=== PATIENT | female | born 1940 | race Caucasian/White ===

== ENCOUNTER 2016-06-28 13:03 | Inpatient (IN) | payer OTHER, BC ==
[~2016-06-28] VITALS: Ht 165.1 cm; Wt 90.2 kg
[2016-06-28] VITALS (11 sets, daily range): BP systolic 143–201; BP diastolic 65–102
[2016-06-28 14:09] LABS: EOSINOPHIL (%) 0.8 % (0-5); EOSINOPHIL COUNT 0.1 K/uL (0-0.3); IMMATURE GRANULOCYTE (%) 0.3 % (0.0-0.7); IMMATURE GRANULOCYTE COUNT 0.4 K/uL; LYMPHOCYTE COUNT 2.2 K/uL (1.0-2.8); MCH 30.7 PG (29.0-34.0); MCHC 34.1 G/DL (30.0-36.0); MEAN PLAT.VOLUME 11.6 uM^3 (9.5-12.4); MONOCYTE COUNT 1.4 K/uL (0-0.8); NEUTROPHIL (%) 73.6 % (45-76); NEUTROPHIL COUNT 10.6 K/uL (1.8-6.4); PLATELET COUNT 235 K/uL (156-360); RBC DIS.WIDTH-CV 12.9 % (11.8-14.6); RBC DIS.WIDTH-SD 41.9 % (39-53); RED BLOOD COUNT 5.11 M/uL (3.80-5.20); WHITE BLOOD COUNT 14.4 K/uL (4.1-10.2)
[2016-06-28 14:19] LABS: PROTHROMBIN TIME 10.6 (9.2-11.2); PTT 23.1 (25-32)
[2016-06-28 14:24] LABS: CHLORIDE 99 mEq/L (99-109); SODIUM 136 mEq/L (136-147)
[2016-06-28 14:25] LABS: GLUCOSE 158 mg/dL (70-99)
[2016-06-28 14:27] LABS: ANION GAP 14 MEQ/L (2-14)
[2016-06-28 14:29] LABS: GFR ESTIMATE (CALCULATED) > 59 mL/min/
[2016-06-28 14:30] LABS: UREA NITROGEN (BUN) 20 mg/dL (9-23)
[2016-06-28 14:32] LABS: TROP-I INTERPRETATION NEGATIVE; TROPONIN-I < 0.01 ng/mL (0.0-0.30)
[2016-06-28] MEDS ORDERED: PREDNISONE10 MG PO (14:50)
[2016-06-28] MEDS ORDERED: SYNTHROID125 MCG PO (14:51)
[2016-06-28] MEDS ORDERED: TYLENOL EXTRA500 MG PO (14:53)
[2016-06-28] MEDS ORDERED: VITAMIN D31000 UNI2 PO (14:54)
[2016-06-28] MEDS ORDERED: ADVIL,NUPRIN,M200 MG PO (14:54)
[2016-06-28] MEDS ORDERED: FISH OIL 1,0001 EA10 PO (14:55)
[2016-06-28] MEDS ORDERED: PROBIOTIC1 EAC1 PO (14:55)
[2016-06-28] MEDS ORDERED: MAGNESIUM OXID200 MG PO (14:55)
[2016-06-28] MEDS ORDERED: MULTI VITAMIN1 EACH PO (14:56)
[2016-06-28] MEDS ORDERED: TURMERIC500 M1 PO (14:58)
[2016-06-28 21:13] LABS: TROP-I INTERPRETATION NEGATIVE; TROPONIN-I < 0.01 ng/mL (0.0-0.30)
[2016-06-29 04:50] VITALS: BP 153/74
[2016-06-29 06:16] LABS: HEMATOCRIT 44.6 % (36.0-46.0); MCH 29.6 PG (29.0-34.0); MCHC 32.1 G/DL (30.0-36.0); MCV 92.3 FL (83-99); MEAN PLAT.VOLUME 10.9 uM^3 (9.5-12.4); PLATELET COUNT 206 K/uL (156-360); RBC DIS.WIDTH-CV 13.2 % (11.8-14.6); RED BLOOD COUNT 4.83 M/uL (3.80-5.20)
[2016-06-29 07:46] VITALS: BP 144/72
[2016-06-29 11:53] VITALS: BP 162/80
[2016-06-29 16:18] VITALS: BP 150/74
[2016-06-29 19:42] VITALS: BP 128/61
[2016-06-29 23:56] VITALS: BP 197/88
[2016-06-30 05:06] VITALS: BP 160/74
[2016-06-30 07:25] VITALS: BP 165/78
[2016-06-30 09:35] LABS: ANION GAP 5 MEQ/L (2-14); CHLORIDE 110 MEQ/L (99-109); GFR ESTIMATE (CALCULATED) > 59 mL/min/; POTASSIUM 4.6 MEQ/L (3.7-5.4); SAMPLE HEMOLYSIS CHECK 0; SAMPLE ICTERIC CHECK 0; SAMPLE LIPEMIA CHECK 0; SODIUM 142 MEQ/L (136-147); UREA NITROGEN (BUN) 22 mg/dL (9-23)
[2016-06-30 09:36] LABS: GLUCOSE 94 mg/dL (70-99)
[2016-06-30 11:47] VITALS: BP 163/75
[2016-06-30 16:16] VITALS: BP 146/69
[2016-06-30 18:15] VITALS: BP 164/75
[2016-06-30 19:59] VITALS: BP 141/68
[2016-07-01] VITALS (7 sets, daily range): BP systolic 152–182; BP diastolic 78–92
[2016-07-02 04:13] VITALS: BP 188/91
[2016-07-02 08:15] VITALS: BP 187/89
[2016-07-02 11:30] VITALS: BP 139/86
[2016-07-02 16:20] VITALS: BP 160/77
[2016-07-02 19:28] VITALS: BP 141/74
[2016-07-03] VITALS (7 sets, daily range): BP systolic 130–186; BP diastolic 68–87
[2016-07-04 04:00] VITALS: BP 152/76
[2016-07-04 10:18] VITALS: BP 168/88
[2016-07-04] MEDS ORDERED: AMLODIPINE BESYL5 MG PO (10:56)
[2016-07-04] MEDS ORDERED: ENDOCET 5-3251 EACH PO (10:57)
[2016-07-04] MEDS ORDERED: GABAPENTIN300 MG PO (10:57)
[2016-07-04] MEDS ORDERED: DECADRON2 MG PO (11:05)
[2016-07-04 11:45] VITALS: BP 162/84
== END 2016-07-04 11:50 | DRG 552 ==
LOC: EME 13:03 → 5WEST 17:06 → EDOF 17:06 → 5WEST 17:51 → 3EAST 06-29 14:42 → 5WEST 06-29 14:42 → 3EAST 06-30 17:31
PROVIDERS: Emergency Medicine; Internal Medicine; Physician Assistant
DX: M51.17 Intervertebral disc disorders with radiculopathy, lumbosacral region (principal); M46.96 Unspecified inflammatory spondylopathy, lumbar region; R26.2 Difficulty in walking, not elsewhere classified; R20.0 Anesthesia of skin; R56.9 Unspecified convulsions; I95.1 Orthostatic hypotension; D72.829 Elevated white blood cell count, unspecified; E03.9 Hypothyroidism, unspecified; E66.9 Obesity, unspecified; Z68.33 Body mass index [BMI] 33.0-33.9, adult
CPT/HCPCS: 70450; 71020; 72100; 72148; 72195; 72220; 73522; 73552; 80048; 81003; 84484; 85025; 85027; 85610; 85730; 93005; 93306; 93880; 94799; 95819; 99281; 99285; G0378; J0360; J1650; J1885; J2060; J7030; J7512; J8540

== ENCOUNTER 2016-07-04 11:16 | Inpatient (IN) | payer OTHER, BC ==
[~2016-07-04] VITALS: Ht 165.1 cm; Wt 90.2 kg
[~2016-07-04 11:16] MED LIST: ADVIL,NUPRIN,M200 MG PO; AMLODIPINE BESYL5 MG PO; DECADRON2 MG PO; ENDOCET 5-3251 EACH PO; FISH OIL 1,0001 EA10 PO; GABAPENTIN300 MG PO; MAGNESIUM OXID200 MG PO; MULTI VITAMIN1 EACH PO; PREDNISONE10 MG PO; PROBIOTIC1 EAC1 PO; SYNTHROID125 MCG PO; TURMERIC500 M1 PO; TYLENOL EXTRA500 MG PO; VITAMIN D31000 UNI2 PO
[2016-07-04 12:35] VITALS: BP 164/82
[2016-07-04 15:41] VITALS: BP 159/71
[2016-07-05] VITALS: BP 148/76
[2016-07-05 05:25] VITALS: BP 140/68
[2016-07-05 07:11] LABS: HEMATOCRIT 38.7 % (36.0-46.0); MCH 30.6 PG (29.0-34.0); MCHC 32.8 G/DL (30.0-36.0); MCV 93.3 FL (83-99); MEAN PLAT.VOLUME 11.6 uM^3 (9.5-12.4); PLATELET COUNT 177 K/uL (156-360); RBC DIS.WIDTH-CV 13.3 % (11.8-14.6); RED BLOOD COUNT 4.15 M/uL (3.80-5.20)
[2016-07-05 07:50] LABS: ALKALINE PHOSPHATASE 39 IU/L (3-129); ANION GAP 4 MEQ/L (2-14); CHLORIDE 107 MEQ/L (99-109); GFR ESTIMATE (CALCULATED) > 59 mL/min/; GLUCOSE 107 mg/dL (70-99); POTASSIUM 4.8 MEQ/L (3.7-5.4); SAMPLE HEMOLYSIS CHECK 0; SAMPLE ICTERIC CHECK 0; SAMPLE LIPEMIA CHECK 0; SODIUM 140 MEQ/L (136-147); TOTAL BILIRUBIN 0.5 MG/DL (0.0-1.0); UREA NITROGEN (BUN) 18 mg/dL (9-23)
[2016-07-05 15:10] VITALS: BP 131/71
[2016-07-06 05:36] VITALS: BP 146/76
[2016-07-06 15:27] VITALS: BP 127/67
[2016-07-07 04:25] VITALS: BP 133/76
[2016-07-07 15:52] VITALS: BP 135/68
[2016-07-08 05:37] VITALS: BP 136/67
[2016-07-08 16:21] VITALS: BP 139/66
[2016-07-09 06:10] VITALS: BP 142/70
[2016-07-09 15:40] VITALS: BP 131/70
[2016-07-10 05:48] VITALS: BP 158/72
[2016-07-10 18:14] VITALS: BP 145/76
[2016-07-11 05:09] VITALS: BP 133/56
[2016-07-11 07:47] LABS: HEMATOCRIT 39.7 % (36.0-46.0); MCH 31.4 PG (29.0-34.0); MCHC 33.2 G/DL (30.0-36.0); MCV 94.5 FL (83-99); MEAN PLAT.VOLUME 11.8 uM^3 (9.5-12.4); PLATELET COUNT 169 K/uL (156-360); RBC DIS.WIDTH-CV 13.7 % (11.8-14.6); RBC DIS.WIDTH-SD 46.7 % (39-53); WHITE BLOOD COUNT 6.7 K/uL (4.1-10.2)
[2016-07-11 10:21] LABS: ALKALINE PHOSPHATASE 45 IU/L (3-129); ANION GAP 3 MEQ/L (2-14); CHLORIDE 103 MEQ/L (99-109); GFR ESTIMATE (CALCULATED) > 59 mL/min/; GLUCOSE 94 mg/dL (70-99); POTASSIUM 5.3 MEQ/L (3.7-5.4); SAMPLE HEMOLYSIS CHECK 0; SAMPLE ICTERIC CHECK 0; SAMPLE LIPEMIA CHECK 0; SODIUM 138 MEQ/L (136-147); TOTAL BILIRUBIN 0.6 MG/DL (0.0-1.0); UREA NITROGEN (BUN) 22 mg/dL (9-23)
[2016-07-11 15:05] VITALS: BP 127/65
[2016-07-12 03:43] VITALS: BP 145/71
[2016-07-12] MEDS ORDERED: SYNTHROID125 MCG PO (11:20)
[2016-07-12] MEDS ORDERED: FAMOTIDINE20 MG PO (11:20)
[2016-07-12] MEDS ORDERED: CELECOXIB200 MG PO (11:20)
[2016-07-12] MEDS ORDERED: SENNA PLUS TAB1 EACH PO (11:20)
[2016-07-12] MEDS ORDERED: ENDOCET 5-3251 EACH PO (11:20)
[2016-07-12] MEDS ORDERED: AMLODIPINE BESYL5 MG PO (11:20)
[2016-07-12] MEDS ORDERED: GABAPENTIN400 MG PO (11:20)
== END 2016-07-12 14:50 | disposition home health service (06) | DRG 93 ==
LOC: 3WEST 11:16
PROVIDERS: Physical Medicine & Rehabilitation Pain Medicine
PROC: F07M0ZZ Range of Motion and Joint Mobility Treatment of Musculoskeletal System - Whole Body (ICD-10-PCS; principal; 2016-07-04)
DX: G89.29 Other chronic pain (principal); E03.9 Hypothyroidism, unspecified; M47.26 Other spondylosis with radiculopathy, lumbar region; M19.90 Unspecified osteoarthritis, unspecified site; E88.09 Other disorders of plasma-protein metabolism, not elsewhere classified; M51.16 Intervertebral disc disorders with radiculopathy, lumbar region; M48.06 Spinal stenosis, lumbar region; I10 Essential (primary) hypertension; M54.17 Radiculopathy, lumbosacral region; E83.51 Hypocalcemia; I34.0 Nonrheumatic mitral (valve) insufficiency; R13.10 Dysphagia, unspecified; Z86.010 Personal history of colon polyps; Z82.49 Family history of ischemic heart disease and other diseases of the circulatory system
CPT/HCPCS: 74220; 80053; 85027; 92610 GN; 97110 GO; 97530 GP; J1650; J8540

== ENCOUNTER 2016-08-21 22:15 | Emergency (ER) | payer OTHER, BC ==
[~2016-08-21] VITALS: Ht 165.1 cm; Wt 92.5 kg
[~2016-08-21 22:15] MED LIST changes: +CELECOXIB200 MG PO; +FAMOTIDINE20 MG PO; +GABAPENTIN400 MG PO; +SENNA PLUS TAB1 EACH PO
[2016-08-22 00:12] LABS: HEMATOCRIT 41.9 % (36.0-46.0); MCH 30.9 PG (29.0-34.0); MCHC 32.7 G/DL (30.0-36.0); MCV 94.4 FL (83-99); PLATELET COUNT 201 K/uL (156-360); RBC DIS.WIDTH-CV 13.3 % (11.8-14.6); RBC DIS.WIDTH-SD 46.8 % (39-53); RED BLOOD COUNT 4.44 M/uL (3.80-5.20); WHITE BLOOD COUNT 10.4 K/uL (4.1-10.2)
[2016-08-22 00:25] LABS: CHLORIDE 98 mEq/L (99-109); POTASSIUM 5.1 mEq/L (3.7-5.4); SODIUM 135 mEq/L (136-147)
[2016-08-22 00:27] LABS: GLUCOSE 122 mg/dL (70-99)
[2016-08-22 00:28] LABS: ANION GAP 12 MEQ/L (2-14)
[2016-08-22 00:29] LABS: TOTAL BILIRUBIN 0.8 mg/dL (0.0-1.0)
[2016-08-22 00:31] LABS: ALKALINE PHOSPHATASE 78 IU/L (3-129); GFR ESTIMATE (CALCULATED) > 59 mL/min/
[2016-08-22 00:32] LABS: UREA NITROGEN (BUN) 29 mg/dL (9-23)
[2016-08-22 00:34] LABS: LIPASE 35 U/L (1.0-51.0)
[2016-08-22 00:38] LABS: TROP-I INTERPRETATION NEGATIVE; TROPONIN-I < 0.01 ng/mL (0.0-0.30)
[2016-08-22 00:51] LABS: ADD MIUA? YES; BILIRUBIN NEGATIVE; BLOOD NEGATIVE; COLOR YELLOW ((YELLOW)); GLUCOSE (STRIP) NEGATIVE; KETONES NEGATIVE; LEUKOCYTES LARGE; NITRITE NEGATIVE; PROTEIN (STRIP) NEGATIVE; SPECIFIC GRAVITY 1.017 (1.000-1.030); UROBILINOGEN 0.2 MG/DL (0.2-1.0)
[2016-08-22] MEDS ORDERED: AMLODIPINE BESYL5 MG PO (01:01)
[2016-08-22 01:15] LABS: BACTERIA NONE SEEN /HPF; EPITHELIAL CELLS 1+ /HPF; MUCUS TRACE /LPF; UCUL ADDED? NO
[2016-08-22 01:58] VITALS: BP 169/92
== END 2016-08-22 02:03 | disposition home or self-care (01) ==
LOC: EME 22:15
PROVIDERS: Emergency Medicine
DX: I10 Essential (primary) hypertension (principal)
CPT/HCPCS: 70450; 80053; 81003; 83690; 84484; 85027; 93005; 99281; 99284